=== PATIENT | male | born 1975 | race Caucasian/White ===

== ENCOUNTER 2023-11-24 17:25 | Emergency (ER) | payer BC ==
[2023-11-24 17:33] VITALS: BP 125/83; PULSE 58; RESP 20; TEMP 98; BMI 28.7
== END 2023-11-24 18:25 | disposition home or self-care (01) ==
LOC: JERFT 17:25
DX: S01.81XA Laceration without foreign body of other part of head, initial encounter (principal); W21.19XA Struck by other bat, racquet or club, initial encounter
CPT/HCPCS: 99282-25